=== PATIENT | female | born 1955 | race Two or more races ===

== ENCOUNTER 2016-07-17 17:44 | Emergency (ER) | payer OTHER ==
[~2016-07-17] VITALS: Wt 50.0 kg
[2016-07-17] MEDS ORDERED: IBUPROFEN 200 MG TAB PO ONE (19:00)
[2016-07-17] MEDS ORDERED: ACET1TAB40 PO (20:01)
[2016-07-17] MEDS ORDERED: IBUP400T22 PO (20:01)
--- NOTE | 2016-07-17 20:07 | RADRPT ---
PROCEDURE: XR Finger. CLINICAL INDICATION: Injury, pain TECHNIQUE: Three views of the right first finger. COMPARISON: None. FINDINGS: There are no fractures or dislocations. Joints appear normally aligned. The soft tissues are unrema rkable. No radiopaque foreign body is identified. IMPRESSION: Normal right first finger. No visualized fracture or dislocation. RPTAT: HBST .Shawn Mcgarry MD, MD Date Time Electronically viewed and signed by .Shawn Mcgarry MD, on 07/17/2016 20:06 .T/
--- NOTE | 2016-07-17 20:09 | RADRPT ---
PROCEDURE: XR Tibia and Fibula. CLINICAL INDICATION: Injury, pain TECHNIQUE: AP, lateral and oblique views of the left tibia and fibula were obtained. COMPARISON: No prior studies are available for comparison. FINDINGS: There is normal mineralization and alignment. No fracture or osseous lesion is identified. The joint s are unremarkable. There are normal soft tissues without evidence of soft tissue swelling. IMPRESSION: Normal left tibia and fibula. No visualized fracture or dislocation. RPTAT: HBST .Shawn Mcgarry MD, MD Date Time Electronically viewed and signed by .Shawn Mcgarry MD, on 07/17/2016 20:08 .T/
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
[2016-07-17 20:21] VITALS: BP 160/92; PULSE 77; RESP 16; TEMP 97.6
== END 2016-07-17 20:21 | disposition home or self-care (01) ==
LOC: FTE 17:44
DX: M77.9 Enthesopathy, unspecified (principal); F17.210 Nicotine dependence, cigarettes, uncomplicated; W27.0XXA Contact with workbench tool, initial encounter; Y92.9 Unspecified place or not applicable
CPT/HCPCS: 73140; 73590; Z7502; Z7610